=== PATIENT | male | born 1965 | race Caucasian/White ===

== ENCOUNTER 2020-01-21 06:00 | Emergency (ER) | payer OTHER ==
[~2020-01-21] VITALS: Ht 177.8 cm; Wt 113.4 kg
[~2020-01-21 06:00] MED LIST: ACETAMINOPHEN-1 EAC1; BENADRYL25 MG PO; FLEXERIL PO; LORTAB PO; PERCOCET 5-3251 EACH PO; PREDNISONE50 MG PO; ZANTAC150 M2 PO
[2020-01-21 06:27] LABS: ABSOLUTE NEUTROPHILS 4.9 thou/uL (1.4-8.2); BASOPHILS 0.8 % (0.0-2.0); EOSINOPHILS 2.1 % (0.0-3.0); HEMATOCRIT 45.9 % (42.0-52.0); HEMOGLOBIN 15.5 gm/dL (14.0-18.0); LYMPHOCYTES 22.6 % (24.0-44.0); MCH 29.6 pg (26.0-34.0); MCHC 33.7 g/dL (28.0-37.0); MCV 87.8 fL (80.0-100.0); MONOCYTES 5.4 % (1.0-8.0); PLATELET COUNT 180 thou/uL (150-400); POLYS 69.1 % (36.0-66.0); RBC 5.22 mil/uL (4.50-6.00); RDW 13.5 % (10.5-14.5)
[2020-01-21 06:37] LABS: ANION GAP 13 mmol/L (7-16); BUN 16 mg/dL (7-18); CALCIUM 8.2 mg/dL (8.5-10.1); CHLORIDE 101 mmol/L (98-107); CO2 24 mmol/L (21-32); CREATININE 1.1 mg/dL (0.7-1.3); GLUCOSE 158 mg/dL (74-106); POTASSIUM 4.1 mmol/L (3.5-5.1); SODIUM 138 mmol/L (136-145)
[2020-01-21] MEDS ORDERED: LISINOPRIL-HCT1 EAC2 PO (06:39)
[2020-01-21] MEDS ORDERED: LIPITOR40 MG PO (06:39)
[2020-01-21 06:46] LABS: TROPONIN-I <0.06 ng/mL (<0.06)
[2020-01-21] MEDS ORDERED: PEPCID40 MG PO (07:09)
[2020-01-21 07:39] VITALS: BP 117/79
--- NOTE | 2020-01-21 08:50 | EKG ---
[facility] [place] [address] ELECTROCARDIOGRAM REPORT Name: VALERIANO BELTRÁN [facility] #: [id number] Admission: 01/21/20 Attend Phys: Discharge: 01/21/20 Date of : 63 Report #: [id number] THIS REPORT FOR: cc: VIDAL - Diana family physician/PCP VIDAL - Diana family physician/PCP Issac Nash MD 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
== END 2020-01-21 07:39 | disposition home or self-care (01) ==
LOC: ER 06:00
PROVIDERS: Emergency Medicine
DX: R07.89 Other chest pain (principal); K21.9 Gastro-esophageal reflux disease without esophagitis; I10 Essential (primary) hypertension; E78.00 Pure hypercholesterolemia, unspecified; Z79.899 Other long term (current) drug therapy

== ENCOUNTER 2021-05-03 07:40 | Emergency (ER) | payer OTHER ==
[~2021-05-03] VITALS: Ht 177.8 cm; Wt 85.7 kg
[~2021-05-03 07:40] MED LIST changes: +LIPITOR40 MG PO; +LISINOPRIL-HCT1 EAC2 PO; +PEPCID40 MG PO
[2021-05-03 08:08] LABS: ABSOLUTE NEUTROPHILS 4.2 thou/uL (1.4-8.2); BASOPHILS 0.9 % (0.0-2.0); EOSINOPHILS 1.8 % (0.0-3.0); HEMATOCRIT 45.6 % (42.0-52.0); HEMOGLOBIN 15.1 gm/dL (14.0-18.0); MCH 28.5 pg (26.0-34.0); MCHC 33.1 g/dL (28.0-37.0); MCV 86.2 fL (80.0-100.0); MONOCYTES 9.8 % (1.0-8.0); PLATELET COUNT 192 thou/uL (150-400); POLYS 63.5 % (36.0-66.0); RBC 5.29 mil/uL (4.50-6.00); RDW 13.8 % (10.5-14.5); WBC 6.6 thou/uL (4.0-11.0)
[2021-05-03 08:26] LABS: CREATININE 1.5 mg/dL (0.7-1.3); POTASSIUM 3.7 mmol/L (3.5-5.1)
[2021-05-03 08:36] LABS: ALBUMIN 2.9 g/dL (3.4-5.0); TOTAL BILIRUBIN 1.1 mg/dL (0.2-1.0); TOTAL PROTEIN 7.3 g/dL (6.4-8.2)
[2021-05-03] MEDS ORDERED: ACCUNEB SO1.25 MG/1 INH (11:05)
[2021-05-03] MEDS ORDERED: AZITHROMYCIN 2250 MG PO (11:05)
[2021-05-03 11:08] VITALS: BP 108/70
--- NOTE | 2021-05-03 16:26 | EKG ---
[facility] [place] [address] ELECTROCARDIOGRAM REPORT Name: DELFINO BELTRÁNL Masood [facility]: [facility] [id number] Admission: 05/03/21 Attend Phys: Discharge: 05/03/21 Date of : 63 Report #: [id number] 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 : 1965 Requested By: Calixto Zavaleta Order Number: [id number] MD: Brady De La O Measurements Intervals [place] Rate: 83 P: 48 [place]: 159 QRS: 4 QRSD: 99 T: 65 QT: 381 QTc: 448 Interpretive Statements Sinus rhythm Ventricular trigeminy Probable left atrial enlargement Low voltage, extremity leads Compared to ECG 01/21/2020 06:10:17 Ventricular premature complex(es) now present Low QRS voltage now present Electronically Signed On 05-03-2021 16:25:50 CDT by Brday De La O [email or web address] <ELECTRONICALLY SIGNED> By: Brady De La O MD, [facility] 05/03/21 1625 0744 0744 Brady De La O MD, [facility] /EPI
== END 2021-05-03 11:08 | disposition home or self-care (01) ==
LOC: ER 07:40
PROVIDERS: Emergency Medicine
DX: J18.9 Pneumonia, unspecified organism (principal); Z20.822 Contact with and (suspected) exposure to COVID-19; I10 Essential (primary) hypertension; K21.9 Gastro-esophageal reflux disease without esophagitis; Z79.899 Other long term (current) drug therapy

== ENCOUNTER 2021-07-18 15:56 | Emergency (ER) | payer OTHER ==
[~2021-07-18] VITALS: Ht 177.8 cm; Wt 104.3 kg
[~2021-07-18 15:56] MED LIST changes: +ACCUNEB SO1.25 MG/1 INH; +AZITHROMYCIN 2250 MG PO
[2021-07-18] MEDS ORDERED: PROTONIX40 M2 PO (16:26)
[2021-07-18] MEDS ORDERED: TESSALON PERLE100 MG PO (17:01)
--- NOTE | 2021-07-18 23:58 | NUR ---
ATTEMPTED TO CALL PT WITH POSITIVE COVID RESULTS, NUMBER IN CHART [phone] IS WRONG NUMBER.
== END 2021-07-18 17:28 | disposition home or self-care (01) ==
LOC: ER 15:56
PROVIDERS: Nurse Practitioner
DX: R05.9 Cough, unspecified (principal); Z20.822 Contact with and (suspected) exposure to COVID-19; R51.9 Headache, unspecified; I10 Essential (primary) hypertension; K21.9 Gastro-esophageal reflux disease without esophagitis

== ENCOUNTER 2021-07-22 12:59 | Emergency (ER) | payer OTHER ==
[~2021-07-22] VITALS: Ht 177.8 cm; Wt 117.0 kg
[~2021-07-22 12:59] MED LIST changes: +PROTONIX40 M2 PO; +TESSALON PERLE100 MG PO
[2021-07-22] MEDS ORDERED: PROAIR HFA8.5 GM INH (14:40)
[2021-07-22 15:42] VITALS: BP 109/75
== END 2021-07-22 16:10 | disposition home or self-care (01) ==
LOC: ER 12:59
DX: U07.1 COVID-19 (principal); R06.00 Dyspnea, unspecified; I10 Essential (primary) hypertension; K21.9 Gastro-esophageal reflux disease without esophagitis; Z98.890 Other specified postprocedural states; Z79.891 Long term (current) use of opiate analgesic; Z79.899 Other long term (current) drug therapy